=== PATIENT | female | born 1980 | race Caucasian/White ===

== ENCOUNTER 2019-04-07 20:01 | Emergency (ER) | payer OTHER ==
[~2019-04-07] VITALS: Ht 152.4 cm; Wt 54.4 kg
[2019-04-07] MEDS ORDERED: TILENOR (20:21)
== END 2019-04-07 23:28 | disposition home or self-care (01) ==
LOC: ER 20:01
DX: J11.1 Influenza due to unidentified influenza virus with other respiratory manifestations (principal)

== ENCOUNTER 2019-11-16 16:11 | Emergency (ER) | payer OTHER ==
[~2019-11-16] VITALS: Ht 152.4 cm; Wt 50.3 kg
[~2019-11-16 16:11] MED LIST: TILENOR
== END 2019-11-16 17:20 | disposition home or self-care (01) ==
LOC: ER 16:11
DX: F41.0 Panic disorder [episodic paroxysmal anxiety] (principal); R06.02 Shortness of breath; R51 Headache; R07.89 Other chest pain

== ENCOUNTER 2020-05-21 05:58 | Emergency (ER) | payer OTHER ==
[~2020-05-21] VITALS: Ht 152.4 cm; Wt 52.2 kg
[2020-05-21] MEDS ORDERED: KETO10TA2 PO (09:34)
[2020-05-21] MEDS ORDERED: NORFLEX100MG PO (09:34)
== END 2020-05-21 09:43 | disposition home or self-care (01) ==
LOC: ER 05:58
DX: S00.83XA Contusion of other part of head, initial encounter (principal); S70.02XA Contusion of left hip, initial encounter; S70.01XA Contusion of right hip, initial encounter; S30.0XXA Contusion of lower back and pelvis, initial encounter; S80.02XA Contusion of left knee, initial encounter; S80.01XA Contusion of right knee, initial encounter; S50.02XA Contusion of left elbow, initial encounter; S10.83XA Contusion of other specified part of neck, initial encounter; Z20.822 Contact with and (suspected) exposure to COVID-19; W13.2XXA Fall from, out of or through roof, initial encounter; Y93.89 Activity, other specified; Y92.098 Other place in other non-institutional residence as the place of occurrence of the external cause; Y99.8 Other external cause status